=== PATIENT | female | born 1960 | race Caucasian/White ===

== ENCOUNTER → 2021-05-23 | Outpatient (CLI) | payer OTHER ==
--- NOTE | 2021-05-23 10:08 | RAD ---
EXAM: Pelvis and right hip, 2 views. HISTORY: Pain. COMPARISON: None. FINDINGS: A frontal view the pelvis and frog-leg view the right hip are obtained. There is no fractur e, dislocation or subluxation. The femoral heads are normal in configuration. There is degenerative c hange at the lumbosacral junction. IMPRESSION: No acute osseous finding. Electronically signed by: Yuli Booth MD (05/23/2021 10:06 AM) [id number]
--- NOTE | 2021-05-23 10:12 | RAD ---
EXAM: Chest, 2 views. HISTORY: COPD. Asthma. COMPARISON: None. FINDINGS: 2 views of chest are obtained. There is lingular and left lower lobe linear atelectasis or scarring. There is no consolidation, pleural effusion or pneumothorax. The heart is normal in size. IMPRESSION: Linear scarring or atelectasis within the lingula and left lower lobe. Electronically signed by: Yuli Booth MD (05/23/2021 10:10 AM) [id number]
== END ==
LOC: PF 08:45
PROVIDERS: ATTEND Family Medicine
DX: Z02.71 Encounter for disability determination (principal); M47.817 Spondylosis without myelopathy or radiculopathy, lumbosacral region; J44.9 Chronic obstructive pulmonary disease, unspecified; J45.909 Unspecified asthma, uncomplicated
CPT/HCPCS: 71046; 73501; 94060; 94640; 94664